=== PATIENT | male | born 1955 | race Caucasian/White ===

== ENCOUNTER 2017-09-14 05:47 | Inpatient (IN) | payer OTHER ==
[~2017-09-14] VITALS: Ht 182.9 cm; Wt 120.2 kg
[~2017-09-14 05:47] MED LIST: AVAPRO150 MG PO; LEVO-T25 MCG PO; LIPITOR20 MG PO
== END 2017-09-15 10:36 | disposition home or self-care (01) | DRG 714 ==
LOC: CIR.AMB 05:47 → O/R 17:18 → SURG 17:26
PROVIDERS: Urology
PROC: 0VT08ZZ Resection of Prostate, Via Natural or Artificial Opening Endoscopic (ICD-10-PCS; principal; 2017-09-14 09:00)
DX: N40.1 Benign prostatic hyperplasia with lower urinary tract symptoms (principal)

== ENCOUNTER → 2017-11-26 20:06 | Outpatient (CLI) | payer OTHER | END | disposition home or self-care (01) | LOC: LAB 20:06 | DX: R97.20 Elevated prostate specific antigen [PSA] (principal) ==

== ENCOUNTER 2017-12-03 07:15 | Outpatient (CLI) | payer OTHER | END 2017-12-03 10:46 | disposition home or self-care (01) | LOC: SONOGRAMA 07:15 | DX: R97.20 Elevated prostate specific antigen [PSA] (principal) ==

== ENCOUNTER 2018-09-25 16:59 | Outpatient (CLI) | payer OTHER | END 2018-09-25 17:17 | disposition home or self-care (01) | LOC: LAB 16:59 | DX: R97.20 Elevated prostate specific antigen [PSA] (principal) ==

== ENCOUNTER 2018-10-30 07:07 | Outpatient (CLI) | payer OTHER | END 2018-10-30 07:25 | disposition home or self-care (01) | LOC: SONOGRAMA 07:07 | DX: R97.20 Elevated prostate specific antigen [PSA] (principal) ==

== ENCOUNTER 2019-08-01 15:48 | Outpatient (CLI) | payer OTHER | END 2019-08-01 16:35 | disposition home or self-care (01) | LOC: LAB 15:48 | DX: R97.20 Elevated prostate specific antigen [PSA] (principal) ==

== ENCOUNTER 2019-10-15 07:14 | Outpatient (CLI) | payer OTHER | END 2019-10-15 07:21 | disposition home or self-care (01) | LOC: SONOGRAMA 07:14 | DX: R97.20 Elevated prostate specific antigen [PSA] (principal) ==

== ENCOUNTER 2021-02-18 05:25 | Day surgery (SDC) | payer OTHER ==
[~2021-02-18 05:25] MED LIST changes: +COZAAR100 MG PO; +TOPROL XL25 M1 PO
== END 2021-02-18 11:15 | disposition home or self-care (01) ==
LOC: CIR.AMB 05:25
PROVIDERS: ATTEND Urology
DX: D29.1 Benign neoplasm of prostate (principal); Z20.822 Contact with and (suspected) exposure to COVID-19